=== PATIENT | female | born 1960 | race Caucasian/White ===

== ENCOUNTER 2016-05-07 16:44 | Emergency (ER) | payer BC ==
[~2016-05-07] VITALS: Wt 79.0 kg
[~2016-05-07 16:44] MED LIST: NO MEDS
--- NOTE | 2016-05-07 20:17 | RADRPT ---
PROCEDURE: XR Chest. CLINICAL INDICATION: Chest pain. TECHNIQUE: Single frontal view of the chest was obtained COMPARISON: None FINDINGS: The heart and mediastinum are within normal limits. The lungs are clear. There is no pleural effusion or pneumothorax. IMPRESSION: No acute disease. RPTAT: [facility] Physician Tan Date Time Electronically viewed and signed by Physician Tan on 05/07/2016 20:16 RS/
[2016-05-07 20:24] LABS: CHLORIDE 106 mmol/L (97-110)
[2016-05-07 20:25] LABS: POTASSIUM 3.9 mmol/L (3.5-5.1); SODIUM 143 mmol/L (135-144)
[2016-05-07 20:27] LABS: CREATININE 0.54 mg/dl (0.44-1.00)
[2016-05-07 20:28] LABS: ANION GAP 16 (8-16); BLOOD UREA NITROGEN 16 mg/dl (7-20); CARBON DIOXIDE 25 mmol/L (21-31); GLUCOSE 97 mg/dl (70-220)
[2016-05-07 20:32] LABS: INR 0.91; PROTIME 12.2 Sec (12.2-14.2)
[2016-05-07 20:33] LABS: PARTIAL THROMBOPLASTIN TIME 28.1 Sec (25.0-35.0)
[2016-05-07 20:37] LABS: EOSINOPHILS # 0.1 10^3/ul (0.0-0.5); EOSINOPHILS % 1.2 % (0.0-7.0); HEMATOCRIT 33.1 % (37.0-47.0); HEMOGLOBIN 10.8 g/dl (12.0-16.0); LYMPHOCYTES # 2.4 10^3/ul (0.8-2.9); MEAN CORPUSCULAR HEMOGLOBIN 24.5 pg (29.0-33.0); MEAN CORPUSCULAR HGB CONC 32.7 g/dl (32.0-37.0); MEAN PLATELET VOLUME 9.2 fl (7.4-10.4); MONOCYTE # 0.4 10^3/ul (0.3-0.9); MONOCYTES % 4.4 % (0.0-11.0); NEUTROPHIL # 5.6 10^3/ul (1.6-7.5); NEUTROPHILS % 66.4 % (39.0-77.0); PLATELET COUNT 294 10^3/UL (140-440); RED BLOOD COUNT 4.41 10^6/ul (4.20-5.40); RED CELL DISTRIBUTION WIDTH 18.9 % (11.5-14.5); UNCORRECTED WBC 8.4 10^3/ul (4.8-10.8); WHITE BLOOD COUNT 8.4 10^3/ul (4.8-10.8)
[2016-05-07 20:40] LABS: TROPONIN-I < 0.010 ng/ml (0.00-0.12)
[2016-05-07 20:44] LABS: CONDITION 1; LH ANALYZER COMMENTS 1
--- NOTE | 2016-05-07 21:03 | ERD ---
ER Documentation Chief Complaint Date/Time DATE: 05/07/16 TIME: 21:01 Chief Complaint tachycardia for the past few yrs got worse this morning. mild cp no n/v HPI This is a 55-year-old female presents to the emergency room for evaluation of palpitations and increased heart rate. She does state that she has a history of palpitations, and has not seen a heart doctor ever. She states that she has had these for years however they got worse today. The patient denies any illicit drug use, alcohol use, or excessive caffeine use. She denies any shortness of breath at this time ROS All systems reviewed and are negative except as per history of present illness. Medications Home Meds Discontinued Reported Medications [No Meds] No Conflict Check 06/03/15 Allergies Allergies: Coded Allergies: No Known Allergy (Unverified , 05/07/16) PMhx/Soc History of Surgery: Yes (TUMMY TUCK, APPENDECTOMY) Anesthesia Reaction: No Hx Neurological Disorder: No Hx Respiratory Disorders: No Hx Cardiac Disorders: No Hx Psychiatric Problems: No Hx Miscellaneous Medical Probl: No Hx Alcohol Use: No Hx Substance Use: No Hx Tobacco Use: No Smoking Status: Never smoker Physical Exam Vitals Vital Signs Date Time Temp Pulse Resp B/P Pulse Ox O2 Delivery O2 Flow Rate FiO2 05/07/16 16:53 98.6 78 20 126/81 100 Physical Exam INITIAL VITAL SIGNS: Reviewed by me GENERAL: The patient is well developed and appropriate for usual state of health in no apparent distress HEENT: Pupils equal, round, and reactive to light. EOMI. There is no scleral icterus. NECK: C-spine is soft and supple, there is no meningismus. There is no cervical lymphadenopathy. LUNGS: Clear to auscultation bilaterally. There are no rales, wheezes or rhonchi. HEART: Regular rate and rhythm, no murmurs, clicks, rubs or gallops. ABDOMEN: Soft, non-tender, non-distended. There are bowel sounds in all four quadrants. No rebound or guarding. EXTREMITIES: There is no peripheral cyanosis or edema. No focal swelling or erythema. NEUROLOGICAL: The patient moves all four extremities with 5/5 strength. Cranial nerves II - XII are intact. Normal gait. Alert and oriented SKIN: There is no apparent rash or petechiae. HEME/LYMPHATIC: There is no evidence of excessive bruising or lymphedema. PSYCHIATRIC: The patient does not appear anxious or depressed. Result Diagram: 05/07/16199905/07/161999 Results 24 hrs Laboratory Tests Test 05/07/16 20:00 Activated Partial Thromboplast Time 28.1Sec Anion Gap 16 Basophils # 0.010^3/ul Basophils % 0.0% Blood Morphology Comment Blood Urea Nitrogen 16mg/dl Calcium Level 9.0mg/dl Carbon Dioxide Level 25mmol/L Chloride Level 106mmol/L Creatinine 0.54mg/dl Eosinophils # 0.110^3/ul Eosinophils % 1.2% Glucose Level 97mg/dl Hematocrit 33.1% Hemoglobin 10.8g/dl INR International Normalized Ratio 0.91 Lymphocytes # 2.410^3/ul Lymphocytes % 28.0% Mean Corpuscular Hemoglobin 24.5pg Mean Corpuscular Hemoglobin Concent 32.7g/dl Mean Corpuscular Volume 75.0fl Mean Platelet Volume 9.2fl Monocytes # 0.410^3/ul Monocytes % 4.4% Neutrophils # 5.610^3/ul Neutrophils % 66.4% Nucleated Red Blood Cells # 0.010^3/ul Nucleated Red Blood Cells % 0.0/100WBC Platelet Count 41061^3/UL Potassium Level 3.9mmol/L Prothrombin Time 12.2Sec Prothrombin Time Ratio 1.0 Red Blood Count 4.4110^6/ul Red Cell Distribution Width 18.9% Sodium Level 143mmol/L Troponin I < 0.010ng/ml White Blood Count 8.410^3/ul Procedures/MDM EKG: Rate/Rhythm: [Normal Sinus Rhythm] QRS, ST, T-waves: [No changes consistent w/ acute ischemia] Impression: [No evidence of ischemia or arrhythmia] EKG: #2 Rate/Rhythm: [Normal Sinus Rhythm] QRS, ST, T-waves: [No changes consistent w/ acute ischemia] Impression: [No evidence of ischemia or arrhythmia] Chest X-ray 1V Interpreted by me: Soft Tissue: No acute abnormalities Bones: No acute abnormalities Mediastinum/Cardiac Silhouette/Lungs: [No acute abnormalities] This 55-year-old female presents to the emergency room for evaluation of palpitations. When I evaluated her she had no palpitations, she is in no acute distress. EKG does not show any significant arrhythmia. Lab work was obtained including a troponin which was normal. Her second EKG also does not show any significant arrhythmia. I did advise this patient she is to follow-up as an outpatient with cardiology for a Holter monitor and possible medications. Both the patient and the family member verbalized understanding and will be discharged home at this time. Departure Diagnosis: Primary Impression: Heart palpitations Additional Impression: Microcytic anemia Condition: Stable RODNEY OCAMPO DO May 07, 2016 21:03
[2016-05-07 21:16] VITALS: BP 122/78; PULSE 75; RESP 18; TEMP 98.6
== END 2016-05-07 21:18 | disposition home or self-care (01) ==
LOC: E/R 16:44
DX: R00.2 Palpitations (principal); D50.9 Iron deficiency anemia, unspecified; R07.9 Chest pain, unspecified
CPT/HCPCS: 36415; 71010; 80048; 84484; 85025; 85610; 85730; 93005; Z7502

== ENCOUNTER 2018-07-18 12:21 | Day surgery (SDC) | payer BC ==
[~2018-07-18] VITALS: Ht 167.6 cm; Wt 89.3 kg
[2018-07-18] MEDS ORDERED: NO HOME MEDS (13:45)
[2018-07-18 13:47] VITALS: Ht 167.6 cm; Wt 89.3 kg
[2018-07-18 14:10] VITALS: BP 134/72; PULSE 63; RESP 17
--- NOTE | 2018-07-18 15:02 | PREAC ---
Date/Time of Note Date/Time of Note DATE: 07/18/18 TIME: 15:02 Anesthesia Eval and Record Evaluation Time Pre-Procedure Interview DATE: 07/18/18 TIME: 15:02 Age 57 Sex female NPO: 8 hrs Preoperative diagnosis heartburn Planned procedure EGD Past Medical History Past Medical History: None Surgery & Anesthesia Issues No known issue Meds Anticoagulation: No Beta Angelina within 24 hr: No Reason Beta Angelina not given: Pt. not on B-Angelina Reported Medications [No Home Meds] No Conflict Check 07/18/18 Meds reviewed: Yes Allergies Coded Allergies: No Known Allergy (Unverified , 07/18/18) Allergies Reviewed: Yes Labs/Studies Labs Reviewed: Reviewed by anesthesiologist test: N/A Studies: ECG (n/a), CXR (n/a) Pre-procedure Exam Last vitals Vital Signs Date Temp Pulse Resp B/P (MAP) Pulse Ox O2 O2 Flow FiO2 Time Delivery Rate 07/18/18 97.4 63 17 134/72 96 Room Air 14:10 (92) Airway: Adequate mouth opening Mallampati: Mallampati I Teeth: Normal Lung: Normal Heart: Normal ASA Physical Status ASA physical status: 1 Emergency: None Planned Anesthetic General/MAC: MAC Planned Pain Management Parenteral pain med Pre-operative Attestations Prior to commencing anesthesia and surgery, the patient was re-evaluated, there was verification of: *The patient's identity *The results of appropriate recent lab work and preoperative vital signs *The above evaluation not changing prior to induction *Anesthetic plan, risk benefits, alternative and complications discussed with patient/family; questions answered; patient/family understands, accepts and wishes to proceed. TONY FANG MD Jul 18, 2018 15:02
[2018-07-18] MEDS ORDERED: PROPOFOL 20 ML ONE (15:03)
--- NOTE | 2018-07-18 15:23 | HPN ---
Date/Time of Note Date/Time of Note DATE: 07/18/18 TIME: 15:23 Interval H&P Admission Note Pt. seen H&P reviewed: No system changes KAILEE LEONE Jul 18, 2018 15:23
[2018-07-18] MEDS ORDERED: ONDANSETRON 4 MG INJ IV PRN (15:30)
[2018-07-18 15:50] VITALS: BP 140/89; PULSE 76; RESP 19
--- NOTE | 2018-07-18 17:36 | PAC ---
Date/Time of Note Date/Time of Note DATE: 07/18/18 TIME: 17:36 Post-Anesthesia Notes Post-Anesthesia Note Last documented vital signs Vital Signs Date Temp Pulse Resp B/P (MAP) Pulse Ox O2 O2 Flow FiO2 Time Delivery Rate 07/18/18 97.6 76 19 140/89 96 Room Air 15:50 (106) 07/18/18 97.4 14:10 Activity: WNL Respiratory function: WNL Cardiovascular function: WNL Mental status: Baseline Pain reasonably controlled: Yes Hydration appropriate: Yes Nausea/Vomiting absent: No TONY FANG MD Jul 18, 2018 17:36
== END 2018-07-18 15:44 | disposition home or self-care (01) ==
LOC: GIL 12:21
PROVIDERS: ATTEND Internal Medicine Gastroenterology
DX: K44.9 Diaphragmatic hernia without obstruction or gangrene (principal)
CPT/HCPCS: 43239; 88305; 88312; Z7610